=== PATIENT | female | born 1985 ===

== ENCOUNTER 2016-10-06 08:45 | Emergency (ER) | payer OTHER ==
[2016-10-06 08:54] VITALS: BP 110/68; PULSE 89; RESP 20; TEMP 98.4; O2SAT 100
--- NOTE | 2016-10-06 09:59 | ED PDOC ---
HPI: CCC, URI, Sore Throat Time Seen by Provider: 10/06/16 09:22 Chief Complaint (Nursing): ENT Problem Chief Complaint (Provider): ENT Problem History Per: Patient History/Exam Limitations: no limitations Onset/Duration Of Symptoms: Days Current Symptoms Are (Timing): Still Present Location Of Pain: Throat, Sinus/es, Diffuse Myalgias, Headache Sick Contacts (Context): None Associated Symptoms: Chills. denies: Fever, Cough Ear Symptoms: Bilateral: None Severity: Moderate Additional Complaint(s): Patient is a 31 year old female who presents to ED for evaluation of sore throat for 2 days. Patient reports sinus pain, nasal congestion, ear congestion and body aches. Denies fever, vomiting or chest pain. Patient also notes that she took no medication at home. Past Medical History Reviewed: Historical Data, Nursing Documentation, Vital Signs Vital Signs: Last Vital Signs Temp 98.4 F 10/06/16 08:53 Pulse 89 10/06/16 08:53 Resp 20 10/06/16 08:53 BP 110/68 10/06/16 08:53 Pulse Ox 100 10/06/16 10:18 - Medical History PMH: No Chronic Diseases - Surgical History Surgical History: (x2) - Family History Family History: States: No Known Family Hx - Home Medications Home Medications: Ambulatory Orders Medication Instructions Recorded Amoxicillin/Clavulanate [Augmentin 1 tab PO BID #20 tab 10/06/16 875 MG-125 MG] Ibuprofen [Motrin] 600 mg PO Q6 PRN #20 tab 10/06/16 - Allergies Allergies/Adverse Reactions: Allergies Allergy/AdvReac Type Severity Reaction Status Date / Time No Known Allergies Allergy Verified 10/06/16 09:38 Review of Systems ROS Statement: Except As Marked, All Systems Reviewed And Found Negative Constitutional: Negative for: Fever, Chills Eyes: Negative for: Vision Change ENT: Positive for: Nose Congestion, Throat Pain. Negative for: Ear Pain Cardiovascular: Negative for: Chest Pain Respiratory: Negative for: Cough, Shortness of Breath Gastrointestinal: Negative for: Nausea, Vomiting, Abdominal Pain Musculoskeletal: Negative for: Neck Pain, Back Pain Skin: Negative for: Rash Neurological: Negative for: Weakness, Numbness Physical Exam - Reviewed Nursing Documentation Reviewed: Yes Vital Signs Reviewed: Yes - Physical Exam Appears: Positive for: Non-toxic, No Acute Distress Skin: Positive for: Normal Color, Warm. Negative for: Rash Eye Exam: Positive for: Normal appearance ENT: Positive for: Nasal Congestion, Pharyngeal Erythema. Negative for: Sinus Pain/Drainage, Tonsillar Exudate, Tonsillar Swelling Neck: Positive for: Normal, Painless ROM Cardiovascular/Chest: Positive for: Regular Rate, Rhythm. Negative for: Murmur Respiratory: Positive for: Normal Breath Sounds. Negative for: Respiratory Distress Extremity: Positive for: Normal ROM Neurologic/Psych: Positive for: Alert, Oriented - ECG O2 Sat by Pulse Oximetry: 100 (RA) Pulse Ox Interpretation: Normal Medical Decision Making Medical Decision Making: Time: 929 Initial impression: Viral illness r/o influenza and strep Initial plan: -- Motrin PO -- Flu swab -- Rapid strep Scribe Attestation: Documented by Renee Schultz acting as a scribe for Reggie Matos MD MD Scribe Attestation: All medical record entries made by the Scribe were at my direction and personally dictated by me. I have reviewed the chart and agree that the record accurately reflects my personal performance of the history, physical exam, medical decision making, and the department course for this patient. I have also personally directed, reviewed, and agree with the discharge instructions and disposition. Disposition - Clinical Impression Clinical Impression: Strep throat - Patient ED Disposition Is Patient to be Admitted: No Doctor Will See Patient In The: Office Counseled Patient/Family Regarding: Studies Performed, Diagnosis, Need For Followup - Disposition Referrals: [facility] [Outside] Disposition: Routine/Home Disposition Time: 11:27 Condition: GOOD Additional Instructions: Return for worsening. Follow up with your PCP in 2-3 days. Prescriptions: Amoxicillin/Clavulanate [Augmentin 875 MG-125 MG] 1 tab PO BID #20 tab Ibuprofen [Motrin] 600 mg PO Q6 PRN #20 tab PRN Reason: Sore Throat Instructions: Strep Throat (ED)
== END 2016-10-06 11:37 | disposition home or self-care (01) ==
LOC: H.ER 08:45
DX: J02.0 Streptococcal pharyngitis (principal); R51 Headache

== ENCOUNTER 2017-01-26 20:49 | Emergency (ER) | payer SELFPAY ==
[2017-01-26 21:01] VITALS: BP 103/76; PULSE 91; RESP 18; TEMP 98.2; O2SAT 100
[2017-01-26 21:37] LABS: BASO # 0.1 K/uL (0.0-0.2); BASO % 0.8 % (0.0-2.0); EOS # 0.4 K/uL (0.0-0.7); HEMOGLOBIN 13.2 g/dL (12.0-16.0); LYMPH # 3.2 K/uL (1.0-4.3); LYMPH % 33.2 % (20.0-40.0); MEAN CORPUSCULAR HEMOGLOBIN 29.2 pg (27.0-31.0); MEAN CORPUSCULAR HGB CONC 33.6 g/dL (33.0-37.0); MEAN PLATELET VOLUME 9.3 fl (7.2-11.7); MONO # 0.8 K/uL (0.0-0.8); MONO % 8.2 % (0.0-10.0); NEUT # 5.1 K/uL (1.8-7.0); NEUT % 53.8 % (50.0-75.0); RBC 4.53 Mil/uL (3.80-5.20); RED CELL DISTRIBUTION WIDTH 13.9 % (11.5-14.5); WHITE BLOOD COUNT 9.5 K/uL (4.8-10.8)
[2017-01-26 22:00] LABS: ALBUMIN 4.3 g/dL (3.5-5.0)
[2017-01-26 22:03] LABS: ALB/GLOB RATIO 1.4 (1.0-2.1); ALT/SGPT 20 U/L (9-52); AST/SGOT 32 U/L (14-36); BLOOD UREA NITROGEN 11 mg/dl (7-17); GFR AFRICAN-AMERICAN > 60; GFR NON-AFRICAN AMERICAN > 60
[2017-01-26 22:04] LABS: CALCIUM 9.5 mg/dL (8.4-10.2)
--- NOTE | 2017-01-26 22:09 | ED PDOC ---
HPI: Abdomen Time Seen by Provider: 01/26/17 21:09 Chief Complaint (Nursing): Palpitations Chief Complaint (Provider): Adominal Swelling History Per: Patient History/Exam Limitations: no limitations Onset/Duration Of Symptoms: Days Current Symptoms Are (Timing): Still Present Associated Symptoms: Constipation. denies: Nausea, Vomiting, Diarrhea, Loss Of Appetite, Chest Pain, Urinary Symptoms Additional Complaint(s): Patient is a 31 year old female presenting to the emergency department for abdominal swelling x1 day with associated breast tenderness and palpitations ( x3 days). Reports that she has not had her period for 3 months and is on day 3 of Glytone for amenorrhea. Also complains of mild, chronic constipation. Denies loss of appetite, dysuria, nausea, vomiting, diarrhea, shortness of breath, chest pain, fever, leg swelling, or calf pain. PCP: none provided Past Medical History Reviewed: Historical Data, Nursing Documentation, Vital Signs Vital Signs: Last Vital Signs Temp 98.2 F 01/26/17 20:52 Pulse 91 H 01/26/17 21:13 Resp 18 01/26/17 20:52 BP 103/76 01/26/17 21:13 Pulse Ox 100 01/26/17 22:59 - Medical History PMH: No Chronic Diseases - Surgical History Surgical History: (x2) - Family History Family History: States: No Known Family Hx - Social History Current smoker - smoking cessation education provided: No Alcohol: None Drugs: Denies - Home Medications Home Medications: Ambulatory Orders Medication Instructions Recorded Amoxicillin/Clavulanate [Augmentin 1 tab PO BID #20 tab 10/06/16 875 MG-125 MG] Ibuprofen [Motrin] 600 mg PO Q6 PRN #20 tab 10/06/16 Ibuprofen [Motrin Tab] 600 mg PO Q8 PRN #60 tab 01/26/17 - Allergies Allergies/Adverse Reactions: Allergies Allergy/AdvReac Type Severity Reaction Status Date / Time No Known Allergies Allergy Verified 10/06/16 09:38 Review of Systems ROS Statement: Except As Marked, All Systems Reviewed And Found Negative Constitutional: Positive for: Other (Normal appetite). Negative for: Fever Cardiovascular: Positive for: Palpitations. Negative for: Chest Pain Respiratory: Negative for: Shortness of Breath Gastrointestinal: Positive for: Abdominal Pain (Abdominal swelling), Constipation (mild chronic). Negative for: Nausea, Vomiting, Diarrhea Genitourinary Female: Positive for: Other (Breast tenderness). Negative for: Dysuria, Frequency, Incontinence, Hematuria Musculoskeletal: Negative for: Leg Pain (Calf pain), Other (Leg swelling) Physical Exam - Reviewed Nursing Documentation Reviewed: Yes Vital Signs Reviewed: Yes - Physical Exam Appears: Positive for: Well, Non-toxic, No Acute Distress Head Exam: Positive for: ATRAUMATIC, NORMAL INSPECTION, NORMOCEPHALIC Skin: Positive for: Normal Color, Warm, Dry Eye Exam: Positive for: Normal appearance ENT: Positive for: Normal ENT Inspection Neck: Positive for: Normal, Painless ROM, Supple Cardiovascular/Chest: Positive for: Regular Rate, Rhythm. Negative for: Murmur Respiratory: Positive for: Normal Breath Sounds. Negative for: Accessory Muscle Use, Respiratory Distress Gastrointestinal/Abdominal: Positive for: Normal Exam, Soft Back: Positive for: Normal Inspection. Negative for: L CVA Tenderness, R CVA Tenderness Extremity: Positive for: Normal ROM. Negative for: Pedal Edema Neurologic/Psych: Positive for: Alert, Oriented - Laboratory Results Result Diagrams: 01/26/17 21:33 01/26/17 21:33 - ECG ECG: Positive for: Interpreted By Me Interpretation Of ECG: Normal sinus rhythm at a rate of 85 bpm. Normal QRS and ST segments. O2 Sat by Pulse Oximetry: 100 (RA) Pulse Ox Interpretation: Normal Medical Decision Making Medical Decision Making: Time: 21:22 Initial impression: Adverse reaction to hormone medication Initial plan: * ED Urine Dipstick * Urine * IV Insertion * Reevaluation No emergently significant lab abnormalities To avoid symptoms, pt was told she could just stop the medication. Clinic information given. Scribe Attestation: Documented by Jenn Oneil, acting as a scribe for Aurelia Mancilla MD. Provider Scribe Attestation: All medical record entries made by the Scribe were at my direction and personally dictated by me. I have reviewed the chart and agree that the record accurately reflects my personal performance of the history, physical exam, medical decision making, and the department course for this patient. I have also personally directed, reviewed, and agree with the discharge instructions and disposition. Disposition - Clinical Impression Clinical Impression: Adverse effects of medication Counseled Patient/Family Regarding: Studies Performed, Diagnosis, Need For Followup - Disposition [facility] Disposition: Routine/Home Disposition Time: 23:18 Condition: GOOD Prescriptions: Ibuprofen [Motrin Tab] 600 mg PO Q8 PRN #60 tab PRN Reason: Pain, Moderate (4-7) Instructions: Estradiol/Norgestimate (By mouth), Amenorrhea (GEN) Print Language: TOGOLESE
--- NOTE | 2017-01-27 10:21 | CARD ---
APPROVED REPORT EKG Measurement Heart [id number] <Conclusion> Normal sinus rhythm Normal ECG
== END 2017-01-26 23:37 | disposition home or self-care (01) ==
LOC: H.ER 20:49
DX: T50.995A Adverse effect of other drugs, medicaments and biological substances, initial encounter (principal); Y92.9 Unspecified place or not applicable

== ENCOUNTER 2017-12-22 15:09 | Emergency (ER) | payer OTHER ==
[2017-12-22 15:23] VITALS: O2SAT 100
[2017-12-22] MEDS ORDERED: Naproxen 500 MG TAB PO STA (15:52)
--- NOTE | 2017-12-22 15:57 | ED PDOC ---
HPI: Chest Pain Time Seen by Provider: 12/22/17 15:41 Chief Complaint (Nursing): Chest Pain Chief Complaint (Provider): cp History Per: Patient (32 y/o female here left sided chest wall pain noted with sitting up while watching TV yesterday. Denies any coughing/fevers/chill. Has had nl breast exam/pap last month.) Past Medical History Reviewed: Historical Data, Nursing Documentation, Vital Signs Vital Signs: Last Vital Signs Temp 98.6 F 12/22/17 15:19 Pulse 84 12/22/17 15:45 Resp 18 12/22/17 15:19 BP 114/67 12/22/17 15:45 Pulse Ox 100 12/22/17 15:58 - Surgical History Surgical History: (x2) - Family History Family History: States: No Known Family Hx - Home Medications Home Medications: Ambulatory Orders Medication Instructions Recorded Amoxicillin/Clavulanate [Augmentin 1 tab PO BID #20 tab 10/06/16 875 MG-125 MG] Ibuprofen [Motrin] 600 mg PO Q6 PRN #20 tab 10/06/16 Ibuprofen [Motrin Tab] 600 mg PO Q8 PRN #60 tab 01/26/17 Naproxen 375 mg PO Q8 PRN #21 tablet 12/22/17 - Allergies Allergies/Adverse Reactions: Allergies Allergy/AdvReac Type Severity Reaction Status Date / Time No Known Allergies Allergy Verified 12/22/17 15:18 Review of Systems ROS Statement: Except As Marked, All Systems Reviewed And Found Negative Cardiovascular: Positive for: Chest Pain Physical Exam - Reviewed Nursing Documentation Reviewed: Yes Vital Signs Reviewed: Yes - Physical Exam Appears: Positive for: Well, Non-toxic, No Acute Distress Head Exam: Positive for: ATRAUMATIC, NORMAL INSPECTION, NORMOCEPHALIC Skin: Positive for: Normal Color, Warm, DRY Eye Exam: Positive for: EOMI, Normal appearance, PERRL ENT: Positive for: Normal ENT Inspection Neck: Positive for: Normal, Painless ROM Cardiovascular/Chest: Positive for: Regular Rate, Rhythm, Other (BREAST: small cystic lesion noted tender at 4 o'clock region of lateral breast. No erythema/ swelling noted.). Negative for: Chest Non Tender (tender chest wall left anterior chest wall.) Respiratory: Positive for: CNT, Normal Breath Sounds Gastrointestinal/Abdominal: Positive for: Normal Exam, Soft Back: Positive for: Normal Inspection Extremity: Positive for: Normal ROM Neurologic/Psych: Positive for: Alert, Oriented - ECG O2 Sat by Pulse Oximetry: 100 - Progress ED Course And Treament: Naproxen 500mg x 1 dose cxr: nad Disposition - Clinical Impression Clinical Impression: Breast pain - Patient ED Disposition Is Patient to be Admitted: No - Disposition [facility] Disposition: Routine/Home Disposition Time: 17:08 Condition: FAIR Prescriptions: Naproxen 375 mg PO Q8 PRN #21 tablet PRN Reason: Pain, Moderate (4-7) Instructions: Chest Pain, Mastalgia (DC) Print Language: SLOVAK
--- NOTE | 2017-12-22 16:33 | RAD ---
HISTORY: cp COMPARISON: No prior. TECHNIQUE: Chest PA and lateral FINDINGS: LUNGS: No active pulmonary disease. PLEURA: No significant pleural effusion identified. No pneumothorax apparent. CARDIOVASCULAR: Normal. OSSEOUS STRUCTURES: Rightward convexity. No fracture appreciated VISUALIZED UPPER ABDOMEN: Normal. OTHER FINDINGS: None. IMPRESSION: No active disease.
[2017-12-22] MEDS ORDERED: Naproxen 500 MG TAB PO ONE (17:19)
[2017-12-22 17:56] VITALS: BP 115/73; PULSE 79; RESP 21; TEMP 97.3
== END 2017-12-22 17:55 | disposition home or self-care (01) ==
LOC: H.ER 15:09
DX: N64.4 Mastodynia (principal)